=== PATIENT | male | born 1955 | race Caucasian/White ===

== ENCOUNTER 2016-09-26 09:09 | Emergency (ER) | payer OTHER ==
--- NOTE | 2016-09-26 09:57 | EDPHY ---
H & P Stated Complaint: cough Time Seen by Provider: 09/26/16 09:16 HPI/ROS: CHIEF COMPLAINT: cough HISTORY OF PRESENT ILLNESS: 60-year-old male presents emergency department complaining an intermittent cough for 3 months. Patient was seen by his primary care doctor the middle of June and given a Z-Lanre for presumed pneumonia though he never had a chest x-ray done. Patient reports he was feeling better after this. He states the end of July developed another cough and was placed on another Z-Lanre which helped his symptoms though he states he has had a lingering cough for the past month. Patient reports cough is worse at night, he states he feels a lot of phlegm in his throat. Subjective fevers and chills, fatigue. Patient reports a 3 day history of right sided lower chest pain that is sharp in nature with coughing. He denies nausea or vomiting , no diarrhea, no abdominal pain. Multiple sick contacts. 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 He does not smoke cigarettes. Patient has been taking over-the -counter Robitussin at home for his symptoms. REVIEW OF SYSTEMS: A comprehensive 10 point review of systems is otherwise negative aside from elements mentioned in the history of present illness. Source: Patient Exam Limitations: No limitations - Personal History Current Tetanus/Diphtheria Vaccine: Yes Tetanus Vaccine Date: < 10 YEARS - Medical/Surgical History Hx Asthma: No Hx Chronic Respiratory Disease: No Hx Diabetes: No Hx Cardiac Disease: No Hx Renal Disease: No Hx Cirrhosis: No Hx Alcoholism: No Hx HIV/AIDS: No Hx Splenectomy or Spleen Trauma: No Other PMH: Hernia repair 2014, ortho., appy fx back - Social History Smoking Status: Former smoker - Physical Exam Exam: General: Alert, nontoxic. ENT: Tympanic membranes clear, external auditory canal, external ear and surrounding soft tissue including over the mastoid unremarkable. Nasopharynx is injected, there is no rhinorrhea. Oropharynx with erythema. There is no exudate. No tonsillar hypertrophy. No asymmetry. The uvula is midline. No elevation of tongue. There is no hoarseness. No drooling, patient has good control of their oral secretions. No trismus. No stridor. Cardiac: Regular rate and rhythm. Chest: Right-sided lower chest wall tenderness to palpation Respiratory: Lungs clear to auscultation bilaterally. Neurological: no meningismus. Skin: No rashes. Constitutional: Initial Vital Signs Temperature (C) 36.8 C 09/26/16 09:12 Heart Rate 71 09/26/16 09:12 Respiratory Rate 17 09/26/16 09:12 Blood Pressure 149/95 H 09/26/16 09:12 O2 Sat (%) 98 09/26/16 09:12 O2 Delivery Mode Room Air Allergies/Adverse Reactions: No Known Allergies Allergy (Verified 09/26/16 09:11) Home Medications: Medication Instructions Recorded Albuterol [Proventil Inhaler HFA 1 - 2 puffs IH Q4H #1 mdi 09/26/16 (*)] Benzonatate [Tessalon Pearles (RX)] 100 mg PO Q8 PRN #20 cap 09/26/16 Fluticasone Nasal [Flonase Nasal 1 sprays NASAL DAILY #1 mdi 09/26/16 [place] (RX)] Guaifenesin/Codeine Phosphate 10 ml PO HS PRN #100 ml 09/26/16 [Guaifenesin-Codeine Liquid] predniSONE 40 mg PO DAILY #6 tab 09/26/16 Medical Decision Making - Diagnostics EKG Interpretation: EKG shows normal sinus rhythm, rate 66, left axis deviation, good R-wave progression, no ST or T-wave abnormalities. Imaging Results: Imaging Impressions Chest X-Ray 09/26/16 09:51 Impression: No acute findings in the chest. Imaging: I viewed and interpreted images myself ED Course/Re-evaluation: 60-year-old male with intermittent cough x 3 months. Patient is nontoxic appearing with normal vital signs, good room air oxygen saturations. Patient went through 2 rounds of Zithromax with improvement after each around though not completely resolved. Patient with right sided CP with coughing. IV, CBC, chemistry panel, D-dimer, troponin and chest x-ray and EKG obtained. EKG shows no signs of ischemia, CBC and chemistry panel are unremarkable, D- dimer is negative, troponin is negative. Patient has no evidence of pneumonia, I will treat him for bronchitis. He will be given an albuterol inhaler, a 3 day course of steroids, Flonase and a prescription for Tessalon Perles. - Data Points Laboratory Results: Laboratory Results 09/26/16 10:00 09/26/16 10:00 09/26/16 09/26/16 09/26/16 10:00 10:00 10:00 WBC RBC Hgb Hct MCV MCH MCHC RDW Plt Count MPV Neut % (Auto) Lymph % (Auto) Waller % (Auto) Eos % (Auto) Baso % (Auto) Nucleat RBC Rel Count Absolute Neuts (auto) Absolute Lymphs (auto) Absolute Monos (auto) Absolute Eos (auto) Absolute Basos (auto) Absolute Nucleated RBC Immature Gran % Immature Gran # D-Dimer 0.36 ug/mLFEU ug/mLFEU (0.00-0.50) Sodium 142 mEq/L mEq/L (134-144) Potassium 4.4 mEq/L mEq/L (3.5-5.2) Chloride 104 mEq/L mEq/L (97-110) Carbon Dioxide 28 mEq/l mEq/l (22-31) Anion Gap 10 mEq/L mEq/L (8-16) BUN 19 mg/dL mg/dL (7-23) Creatinine 0.8 mg/dL mg/dL (0.7-1.3) Estimated GFR > 60 Glucose 91 mg/dL mg/dL (70-100) Calcium 10.0 mg/dL mg/dL (8.5-10.4) Troponin I < 0.012 ng/mL ng/mL (0-0.034) 09/26/16 10:00 WBC 6.58 10^3/uL 10^3/uL (3.80-9.50) RBC 5.42 10^6/uL 10^6/uL (4.40-6.38) Hgb 16.4 g/dL g/dL (13.7-17.5) Hct 47.4 % % (40.0-51.0) MCV 87.5 fL fL (81.5-99.8) MCH 30.3 pg pg (27.9-34.1) MCHC 34.6 g/dL g/dL (32.4-36.7) RDW 12.7 % % (11.5-15.2) Plt Count 219 10^3/uL 10^3/uL (150-400) MPV 9.7 fL fL (8.7-11.7) Neut % (Auto) 67.7 % % (39.3-74.2) Lymph % (Auto) 18.8 % % (15.0-45.0) Waller % (Auto) 9.7 % % (4.5-13.0) Eos % (Auto) 3.0 % % (0.6-7.6) Baso % (Auto) 0.5 % % (0.3-1.7) Nucleat RBC Rel Count 0.0 % % (0.0-0.2) Absolute Neuts (auto) 4.45 10^3/uL 10^3/uL (1.70-6.50) Absolute Lymphs (auto) 1.24 10^3/uL 10^3/uL (1.00-3.00) Absolute Monos (auto) 0.64 10^3/uL 10^3/uL (0.30-0.80) Absolute Eos (auto) 0.20 10^3/uL 10^3/uL (0.03-0.40) Absolute Basos (auto) 0.03 10^3/uL 10^3/uL (0.02-0.10) Absolute Nucleated RBC 0.00 10^3/uL 10^3/uL (0-0.01) Immature Gran % 0.3 % % (0.0-1.1) Immature Gran # 0.02 10^3/uL 10^3/uL (0.00-0.10) D-Dimer Sodium Potassium Chloride Carbon Dioxide Anion Gap BUN Creatinine Estimated GFR Glucose Calcium Troponin I Medications Given: Discontinued Medications Ketorolac Tromethamine (Toradol) 15 mg IVP EDNOW ONE Stop: 09/26/16 10:33 Last Admin: 09/26/16 10:52 Dose: 15 mg Departure - Departure Disposition: Home, Routine, Self-Care Clinical Impression: Acute bronchitis Qualifiers: Bronchitis organism: unspecified organism Qualified Code(s): J20.9 - Acute bronchitis, unspecified Condition: Good Instructions: Acute Bronchitis (ED) Additional Instructions: Use albuterol inhaler 2 puffs every 4-6 hours as needed for cough. Take 40 mg of prednisone daily for 3 days. Use 1 spray of Flonase in each nostril daily for 7 days. Take Tessalon Perles every 8 hours as needed for cough during the day, use cough syrup at night as needed, this has codeine in it and does cause drowsiness. Take 600 mg of ibuprofen every 8 hours with food as needed for your chest wall pain. Referrals: Evangelina Abrams MD [Primary Care Provider] - As per Instructions Prescriptions: Albuterol [Proventil Inhaler HFA (*)] 1 - 2 puffs IH Q4H #1 mdi Benzonatate [Tessalon Pearles (RX)] 100 mg PO Q8 PRN #20 cap PRN Reason: Cough, Moderate Fluticasone Nasal [Flonase Nasal Forreston (RX)] 1 sprays NASAL DAILY #1 mdi Guaifenesin/Codeine Phosphate [Guaifenesin-Codeine Liquid] 10 ml PO HS PRN #100 ml PRN Reason: Cough, Moderate predniSONE 40 mg PO DAILY #6 tab
[2016-09-26 10:13] LABS: % IMMATURE GRANULYOCYTES 0.3 % (0.0-1.1); ABSOLUTE IMMATURE GRANULOCYTES 0.02 10^3/uL (0.00-0.10); ADD DIFF? NO; ADD MORPH? NO; ADD SCAN? NO; ATYPICAL LYMPHOCYTE FLAG 0 (0-99); FRAGMENT RBC FLAG 0 (0-99); HEMATOCRIT 47.4 % (40.0-51.0); HEMOGLOBIN 16.4 g/dL (13.7-17.5); LEFT SHIFT FLG 0 (0-99); LIPEMIA HEMOLYSIS FLAG 90 (0-99); MEAN CELL HEMOGLOBIN 30.3 pg (27.9-34.1); MEAN CELL HEMOGLOBIN CONCENTR. 34.6 g/dL (32.4-36.7); MEAN CELL VOLUME 87.5 fL (81.5-99.8); MEAN PLATELET VOLUME 9.7 fL (8.7-11.7); PLATELET CLUMPS FLAG 0 (0-99); PLATELET COUNT 219 10^3/uL (150-400); RED BLOOD CELL COUNT 5.42 10^6/uL (4.40-6.38); RED CELL DISTRIBUTION WIDTH 12.7 % (11.5-15.2)
--- NOTE | 2016-09-26 10:15 | CPEKG ---
Heart Rate: 66 RR Interval: 909 P-R Interval: 192 QRSD Interval: 88 QT Interval: 396 QTC Interval: 415 P [place]: 19 QRS [place]: -17 T Wave [place]: 34 EKG Severity - OTHERWISE NORMAL ECG - EKG Impression: SINUS RHYTHM EKG Impression: BORDERLINE LEFT AXIS DEVIATION Electronically Signed By: Rosario Chávez 26-Sep-2016 15:04:09
[2016-09-26 10:25] LABS: ANION GAP 10 mEq/L (8-16); CARBON DIOXIDE 28 mEq/l (22-31); CHLORIDE 104 mEq/L (97-110); CREATININE 0.8 mg/dL (0.7-1.3); GLOMERULAR FILTRATION RATE > 60; GLUCOSE 91 mg/dL (70-100); POTASSIUM 4.4 mEq/L (3.5-5.2); SODIUM 142 mEq/L (134-144)
[2016-09-26] MEDS ORDERED: KETOROLAC 15 MG/1 ML SDV IVP ONE (10:32)
[2016-09-26 11:54] VITALS: BP 131/93; PULSE 67; RESP 18; TEMP 98.4; O2SAT 97
== END 2016-09-26 11:53 | disposition home or self-care (01) ==
DX: J20.9 Acute bronchitis, unspecified (principal); Z87.891 Personal history of nicotine dependence
CPT/HCPCS: 96374; J1885